=== PATIENT | male | born 1985 | race Caucasian/White ===

== ENCOUNTER → 2024-07-11 | Outpatient (CLI) | payer BC, SELFPAY ==
[2024-07-11 12:49] LABS: Absolute Neutrophil Count 2.3 X10^3/uL (2.0-7.7); Basophil# 0.04 X10^3/uL; Basophil% 0.7 % (0-1); Eosinophil# 0.27 X10^3/uL; Eosinophils% 4.8 % (0-5); Hematocrit 41.3 % (40-54); Hemoglobin 14.8 g/dL (13.0-16.5); Lymphocyte % 44.4 % (19-41); Mean Corp Hgb Conc 35.8 g/dL (32-36); Mean Corpuscular Hgb 32.7 pg (27.0-32.0); Mean Corpuscular Volume 91.2 fL (80-94); Mean Platelet Vol. 10.3 fl (6.2-12.0); Monocyte# 0.53 X10^3/uL; Monocyte% 9.4 % (0-10); NRBC Flagged by Analyzer 0 % (0-5); Neutrophil # 2.27 X10^3/uL (2.7-7.7); Neutrophil % 40.3 % (47-70); Platelet Count 190 K/mm3 (150-450); RBC Distribution Width CV 11.1 % (11.6-14.6); RBC Distribution Width SD 37.3 fl (35.1-43.9); Red Blood Count 4.53 M/mm3 (4.6-6.2); White Blood Count 5.6 K/mm3 (4.4-11.0)
[2024-07-11 15:18] LABS: Microalbumin,Random Urine < 12.0 mg/L (NO RANGE EST.)
[2024-07-11 16:45] LABS: Cholesterol 185 mg/dL (<=200); High Density Lipoprotein 81 mg/dL; Low Density Lipoprotein Calc. 75 mg/dL; Triglycerides 149 mg/dL; Very Low Density Lipoprotein 30 mg/dL (5-40); Vitamin B12 490 pg/mL (180-914); cholesterol:hdl ratio screen 2.29
[2024-07-11 17:58] LABS: Hemoglobin A1c 5.1 % (<=5.6)
[2024-07-11 18:03] LABS: ALB/GLOB Ratio 1.6 RATIO (0.9-2.4); AST(SGOT) 63 U/L (<=37); Alanine Aminotransfer ALT/SGPT 91 U/L (<=46); Albumin, Serum 4.7 g/dL (3.5-5.0); Alkaline Phosphatase 67 U/L (40-129); Anion Gap 14 (5-15); BUN 7 mg/dL (4-19); BUN/Creat Ratio 8.3 RATIO (10-20); Calcium,Total 9.3 mg/dL (7.6-11.0); Carbon Dioxide 23.6 mmol/L (21.0-32.0); Chloride 99 mmol/L (98-108); Creatinine, Serum 0.82 mg/dL (0.70-1.20); EST Glomerular Filtration Rate 116 (>60); Globulin 2.9 g/dL (2.2-4.2); Glucose 96 mg/dL (70-99); Potassium 4.3 mmol/L (3.3-5.1); Protein, Total 7.6 g/dL (5.9-8.4); Sodium Level 137 mmol/L (133-145); Total Bilirubin 0.78 mg/dL (0.00-1.30)
== END | disposition home or self-care (01) ==
LOC: VSLAB 09:15
PROVIDERS: PCP Nurse Practitioner Family; Visit Provider Nurse Practitioner Family
DX: I10 Essential (primary) hypertension (principal); R53.83 Other fatigue; Z13.1 Encounter for screening for diabetes mellitus
CPT/HCPCS: 36415; 80053; 80061; 82043; 82306; 82607; 83036; 84443; 85025

== ENCOUNTER → 2024-08-13 | Outpatient (CLI) | payer BC, SELFPAY | END | disposition home or self-care (01) | LOC: SL 11:59 | PROVIDERS: PCP Nurse Practitioner Family; Referring Provider Nurse Practitioner Family; Visit Provider Nurse Practitioner Family | DX: G47.10 Hypersomnia, unspecified (principal) | CPT/HCPCS: 95806 ==

== ENCOUNTER → 2024-09-19 | Outpatient (CLI) | payer BC, SELFPAY ==
[2024-09-19 17:42] LABS: ALB/GLOB Ratio 1.8 RATIO (0.9-2.4); AST(SGOT) 62 U/L (<=37); Alanine Aminotransfer ALT/SGPT 92 U/L (<=46); Albumin, Serum 4.7 g/dL (3.5-5.0); Alkaline Phosphatase 72 U/L (40-129); Anion Gap 17 (5-15); BUN 7 mg/dL (4-19); BUN/Creat Ratio 7.5 RATIO (10-20); Calcium,Total 9.8 mg/dL (7.6-11.0); Carbon Dioxide 18.8 mmol/L (21.0-32.0); Chloride 101 mmol/L (98-108); Creatinine, Serum 0.97 mg/dL (0.70-1.20); EST Glomerular Filtration Rate 103 (>60); Globulin 2.6 g/dL (2.2-4.2); Glucose 101 mg/dL (70-99); Potassium 4.7 mmol/L (3.3-5.1); Protein, Total 7.3 g/dL (5.9-8.4); Sodium Level 137 mmol/L (133-145)
== END | disposition home or self-care (01) ==
LOC: VSLAB 15:08
PROVIDERS: PCP Nurse Practitioner Family; Visit Provider Nurse Practitioner Family
DX: R74.8 Abnormal levels of other serum enzymes (principal)
CPT/HCPCS: 36415; 80053